=== PATIENT | female | born 2000 ===

== ENCOUNTER 2021-08-27 19:07 | Observation (INO) | payer MEDICAID ==
[~2021-08-27] VITALS: Ht 160 cm; Wt 80.7 kg
== END 2021-08-27 21:10 | disposition home or self-care (01) ==
LOC: LDRP 19:07
PROVIDERS: ADMIT Pediatrics; ATTEND Pediatrics
DX: O48.0 Post-term pregnancy (principal); O26.893 Other specified pregnancy related conditions, third trimester; R10.2 Pelvic and perineal pain; O60.03 Preterm labor without delivery, third trimester; O13.3 Gestational [pregnancy-induced] hypertension without significant proteinuria, third trimester; Z3A.40 40 weeks gestation of pregnancy
CPT/HCPCS: 59025; 81002; G0378; G0379

== ENCOUNTER 2021-08-29 01:21 | Observation (INO) | payer MEDICAID ==
[2021-08-29] MEDS ORDERED: PREN-96 PO (01:52)
== END 2021-08-29 03:13 | disposition home or self-care (01) ==
LOC: LDRP 01:21
PROVIDERS: ADMIT Obstetrics & Gynecology; ATTEND Obstetrics & Gynecology
DX: O60.03 Preterm labor without delivery, third trimester (principal); Z3A.40 40 weeks gestation of pregnancy
CPT/HCPCS: 59025; 81002; G0378; G0379